=== PATIENT | female | born 1990 | race Caucasian/White ===

== ENCOUNTER 2016-09-22 07:27 | Emergency (ER) | payer SELFPAY ==
[2016-09-22 07:29] VITALS: BP 126/84; PULSE 112; RESP 20; TEMP 98; O2SAT 96
--- NOTE | 2016-09-22 07:47 | PD ---
HPI Chief Complaint: Oral / Dental Pain or Problem Time Seen by Provider: 07:46 Travel History International Travel<30 days: No Contact w/Intl Traveler<30days: No Traveled to known affect area: No History of Present Illness HPI 26-year-old female presents emergency Department with "cold sores" to her lips and buccal membranes which gotten progressively worse over the past 3 days. Patient has been trying omek-pfk-clrnzer medications without improvement. Patient does have some mild to moderate sore throat as well significant swelling in the throat. She is felt chills but no specific fever. She has no ear pain or cough or nausea vomiting or diarrhea. She has never had symptoms like this before. She has no known drug allergies. PFSH Past Medical History Autoimmune Disease: Yes (lupus of kidneys) ?: Not Social History Alcohol Use: No Tobacco Use: No Allergies-Medications (Allergen,Severity, Reaction): Coded Allergies: No Known Allergies (Unverified , 09/22/16) Reported Meds & Prescriptions Reported Meds & Active Scripts Active No Active Prescriptions or Reported Medications Review of Systems Except as stated in HPI: all other systems reviewed are Neg General / Constitutional: Positive: Chills, No: Fever Eyes: No: Visual changes HENT: Positive: Sore Throat, No: Headaches, Rhinitis, Rhinorrhea, Congestion, Neck Stiffness, Neck Pain, Ear Discharge, Earache Cardiovascular: No: Chest Pain or Discomfort Respiratory: No: Shortness of Breath Gastrointestinal: No: Abdominal Pain Genitourinary: No: Dysuria Musculoskeletal: No: Pain Skin: Positive Lesions (see history present illness.), No Rash Neurologic: No: Weakness Psychiatric: No: Depression Endocrine: No: Polydipsia Hematologic/Lymphatic: No: Easy Bruising Physical Exam Narrative GENERAL: Patient appears in mild to moderate distress. SKIN: Warm and dry. Normal color. Normal turgor. Patient has multiple viral exanthem to the upper and lower lips with localized swelling and erythema. There is no sign of bacterial infection. HEAD: Atraumatic. Normocephalic. EYES: Pupils equal and round. No scleral icterus. No injection or drainage. ENT: No nasal bleeding or discharge. Mucous membranes pink and moist with multiple viral exanthem noted. Pharynx shows several ulcerations without significant swelling or airway compromise. No significant lymphadenopathy. Uvula is midline. NECK: Trachea midline. No JVD. CARDIOVASCULAR: Regular rate and rhythm. RESPIRATORY: No accessory muscle use. Clear to auscultation. Breath sounds equal bilaterally. MUSCULOSKELETAL: Extremities without clubbing, cyanosis, or edema. No obvious deformities. NEUROLOGICAL: Awake and alert. No obvious cranial nerve deficits. Motor grossly within normal limits. Five out of 5 muscle strength in the arms and legs. Normal speech. PSYCHIATRIC: Appropriate mood and affect; insight and judgment normal. Data Data Last Documented VS Vital Signs Date Time Temp Pulse Resp B/P Pulse Ox O2 Delivery O2 Flow Rate FiO2 09/22/16 07:29 98.0 112 20 126/84 96 Room Air MDM Medical Decision Making Medical Screen Exam Complete: Yes Emergency Medical Condition: Yes Differential Diagnosis Vital rash. Herpes simplex. Pharyngitis. Narrative Course Patient is medically stable at time of exam. Patient is treated with acyclovir oral capsules 200 mg, 4 capsules 5 times daily 7 days. Patient is also given a prescription for acyclovir topical ointment to be used 5 times daily for 7 days. Patient can use [id number] Tylenol and ibuprofen as needed for pain. Patient should avoid sun exposure until completely cleared. Patient should follow with her primary care physician or return to emergency Department with worsening symptoms as needed. Diagnosis Primary Impression: Herpes simplex Referrals: [facility] Patient Instructions: General Instructions, Oral Herpes Simplex Virus Infections (ED) Additional Instructions: Patient is treated with acyclovir oral capsules 200 mg, 4 capsules 5 times daily 7 days. Patient is also given a prescription for acyclovir topical ointment to be used 5 times daily for 7 days. Patient can use ymzo-dvh-aetrrsq Tylenol and ibuprofen as needed for pain. Patient should avoid sun exposure until completely cleared. Patient should follow with her primary care physician or return to emergency Department with worsening symptoms as needed. Scripts Acyclovir Topical 5% Oint1 Applic TOPICAL Q3HR #5 GM Ref 0 Prov:Christiana Roberts DO 09/22/16 Acyclovir 200 Mg Ott701 Mg PO 5 TIMES A DAY 7 Days Ref 0 Prov:Christiana Roberts DO 09/22/16 Disposition: 01 DISCHARGE HOME Condition: Stable Carlos Spain Sep 22, 2016 07:46
[2016-09-22] MEDS ORDERED: ACYC200C66 PO (07:57)
[2016-09-22] MEDS ORDERED: ACYC5OIN4 TOPICAL (07:57)
== END 2016-09-22 09:03 | disposition home or self-care (01) ==
LOC: NEPB 07:27
DX: B00.9 Herpesviral infection, unspecified (principal); J02.9 Acute pharyngitis, unspecified; M32.9 Systemic lupus erythematosus, unspecified
CPT/HCPCS: 99282

== ENCOUNTER 2016-10-16 15:09 | Emergency (ER) | payer SELFPAY ==
[~2016-10-16 15:09] MED LIST: ACYC200C66 PO; ACYC5OIN4 TOPICAL
[2016-10-16 15:11] VITALS: BP 133/85; PULSE 98; TEMP 98.1; O2SAT 96
[2016-10-16 17:02] LABS: BACTERIA, URINE RARE /hpf; BLOOD, URINE NEG (NEG); COMMENT (UR) CULT NOT INDICATED; CULTURE IF INDICATED CULT NOT INDICATED; GLUCOSE,URINE NEG (NEG); KETONE, URINE NEG (NEG); NITRITE,URINE NEG (NEG); SQUAMOUS EPITHELIAL CELL URINE 1 /hpf (0-5); URINE COLOR LIGHT-YELLOW (YELLW/STRAW)
[2016-10-16] MEDS ORDERED: MORPHINE SULFATE 4 MG/ML INJ IV PUSH ONE ×2 (18:30→21:00)
[2016-10-16] MEDS ORDERED: ONDANSETRON HCL 4 MG/2 ML VIAL IV PUSH ONE ×2 (18:30→21:00)
[2016-10-16 19:26] LABS: AUTOMATED NEUTROPHIL # 5.3 TH/MM3 (1.8-7.7); BASOPHIL # 0.1 TH/MM3 (0-0.2); BASOPHIL % 0.9 % (0.0-2.0); EOSINOPHIL # 0.1 TH/MM3 (0-0.4); EOSINOPHIL % 0.7 % (0.0-4.0); HEMATOCRIT 41.6 % (35.0-46.0); HEMO FLAGS DIFF FINAL; LYMPHOCYTE # 3.4 TH/MM3 (1.0-4.8); MEAN CELL VOLUME 84.4 FL (80.0-100.0); MEAN CORPUSCULAR HEMOGLOBIN 28.9 PG (27.0-34.0); MEAN CORPUSCULAR HGB CONC 34.3 % (32.0-36.0); MONO % 6.7 % (0.0-8.0); NEUT % 55.7 % (16.0-70.0); PLATELET COUNT 319 TH/MM3 (150-450); RED BLOOD COUNT 4.92 MIL/MM3 (4.00-5.30); RED CELL DISTRIBUTION WIDTH 13.7 % (11.6-17.2); WHITE BLOOD COUNT 9.6 TH/MM3 (4.0-11.0)
--- NOTE | 2016-10-16 19:35 | RADRPT ---
EXAM DATE/TIME: 10/16/2016 19:16 [place] COMPARISON: No previous studies available for comparison. INDICATIONS : Right flank pain with vomiting and hematuria. ORAL CONTRAST: No oral contrast ingested. RADIATION DOSE: 8.19 CTDIvol (mGy) MEDICAL HISTORY : Lupus of the kidneys. SURGICAL HISTORY : None. ENCOUNTER: Initial ACUITY: 1 day PAIN SCALE: 8/10 LOCATION: Right flank TECHNIQUE: Volumetric scanning of the abdomen and pelvis was performed. Using automated exposure control and ad justment of the mA and/or kV according to patient size, radiation dose was kept as low as reasonably achievable to obtain optimal diagnostic quality images. FINDINGS: LOWER LUNGS: The visualized lower lungs are clear. LIVER: Homogeneous density without lesion. There is no dilation of the biliary tree. No calcified gallston es. SPLEEN: Normal size without lesion. PANCREAS: Within normal limits. KIDNEYS: Normal in size and shape. There is no mass, stone, or hydronephrosis. ADRENAL GLANDS: Within normal limits. VASCULAR: There is no aortic aneurysm. BOWEL/MESENTERY: The stomach, small bowel, and colon demonstrate no acute abnormality. There is no free intraperitone al air or fluid. ABDOMINAL WALL: Within normal limits. RETROPERITONEUM: There is no lymphadenopathy. BLADDER: No wall thickening or mass. REPRODUCTIVE: Within normal limits. INGUINAL: There is no lymphadenopathy or hernia. MUSCULOSKELETAL: Within normal limits for patient age. CONCLUSION: 1. No acute findings. Specifically no renal calculi or obstructive uropathy. Incidental calcified gra nulomata in the spleen. No bowel obstruction, free fluid or free air. Chucho Casanova MD on October 16, 2016 at 19:27 Board Certified Radiologist. This report was verified electronically.
[2016-10-16 19:51] LABS: BICARBONATE 24.1 MEQ/L (21.0-32.0); POTASSIUM 3.7 MEQ/L (3.5-5.1)
[2016-10-16] MEDS ORDERED: PRED20 PO (20:18)
[2016-10-16] MEDS ORDERED: HYDR-3533 PO (20:18)
--- NOTE | 2016-10-16 20:24 | PD ---
HPI Chief Complaint: Complaint Time Seen by Provider: 20:18 Travel History International Travel<30 days: No Contact w/Intl Traveler<30days: No Traveled to known affect area: No History of Present Illness HPI 26-year-old female that presents to the ED for evaluation of flank pain as well as possible lupus flareup. Per patient she has a history of lupus affecting the kidneys. Per patient she's been in [place] for about a year and she has not had any follow-up since. Per patient she is to be medications for her lupus before coming to [place] and her adjunct phlebotomy instructor believes that her symptoms were improving and her lupus was under control. Apparently these medications were discontinued. Per patient for the most part she's been having no issues. Per patient she's had episodes before like this one. Per patient she has left flank pain. Per patient she had blood in her urine and she had some nausea with vomiting. She denies any chest pain or shortness of breath. No rashes. No fevers chills or sweats. She states that she did have episode of vomiting today. She has no known allergies to medication. She has not taken anything for this. Per patient her pain is 6 out of 10. Per patient her main concern is that her work made her come here to get checked before she can go back to work. She asked for a note so she can go back to work. PFSH Past Medical History Autoimmune Disease: Yes (lupus of kidneys) Tetanus Vaccination: Unknown Influenza Vaccination: No ?: Not Social History Alcohol Use: No Tobacco Use: No Substance Use: No Allergies-Medications (Allergen,Severity, Reaction): Coded Allergies: No Known Allergies (Unverified , 09/22/16) Reported Meds & Prescriptions Reported Meds & Active Scripts Active Tramadol (Tramadol HCl) 50 Mg Tab 50 Mg PO Q6H PRN Prednisone 20 Mg Tab 20 Mg PO BID Review of Systems General / Constitutional: No: Fever, Chills, Weight Gain, Weight Loss, Other Eyes: No: Diploplia, Blurred Vision, Photophobia, Drainage, Redness, Foreign Body Sensation, Pain, Tearing, Blind Spots, Visual changes, Blindness, Other HENT: No: Headaches, Vertigo, Lightheadedness, Sore Throat, Rhinitis, Rhinorrhea, Congestion, Nosebleed, Neck Stiffness, Neck Pain, Masses, Gingival Bleeding, Dental Difficulties, Ear Discharge, Earache, Other Cardiovascular: No: Chest Pain or Discomfort, Palpitations, Irregular Rhythm, Tachycardia, Diaphoresis, Syncope, Dyspnea on exertion, Varicosities, Edema, Cyanosis, Varicosities, Phlebitis, Claudication, Other Respiratory: No: Cough, Shortness of Breath, Wheezing, Sneezing, Orthopnea, Hemoptysis, Stridor, Night Sweats, Pleuritic Pain, Other Gastrointestinal: Positive: Nausea, Vomiting, Abdominal Pain, No: Diarrhea, Hematemesis, Hematochezia, Constipation, Changes in Bowel Habits, Indigestion, Dysphagia, Loss of Appetite, Other Genitourinary: Positive: Hematuria, Flank Pain, No: Urgency, Frequency, Dysuria, Nocturia, Decreased Urinary Output, Oliguria, Hesitancy, Dribbling, Incontinence, Pelvic Pain, Dyspareunia, Discharge, Dysmenorrhea, Menorrhagia, Metorrhagia, Vaginal Bleeding, Other Musculoskeletal: No: Myalgias, Arthralgias, Limited ROM, Weakness, Cramping, Edema, Pain, Atrophy, Other Skin: No Rash, No Itching, No Dryness, No Lumps, No Hives, No Change in Pigmentation, No Change in nails, No Alopecia, No Lesions, No Breast Lumps, No Breast Tenderness, No Breast Swelling, No Other Neurologic: No: Weakness, Dizziness, Syncope, Focal Abnormalities, Coordination Problem, Tremor, Ataxia, Headache, Change in Mentation, Slurred Speech, Paresthesia, Incontinence, Seizures, Sensory Disturbance, Other Psychiatric: No: Anxiety, Depression, Suicidal Ideations, Disorder of Thought, Mood Disorder, Substance Abuse, Homicidal Ideation, Other Endocrine: No: Heat Intolerance, Cold Intolerance, Polyuria, Polydipsia, Other Hematologic/Lymphatic: No: Easy Bruising, Lymph Node Enlargement, Other Physical Exam Narrative GENERAL: SKIN: Warm and dry. HEAD: Atraumatic. Normocephalic. EYES: Pupils equal and round. No scleral icterus. No injection or drainage. ENT: No nasal bleeding or discharge. Mucous membranes pink and moist. Tongue is midline. No uvula deviation. NECK: Trachea midline. No JVD. CARDIOVASCULAR: Regular rate and rhythm. No murmurs, S3, S4. RESPIRATORY: No accessory muscle use. Clear to auscultation. Breath sounds equal bilaterally. GASTROINTESTINAL: Abdomen soft, non-tender, nondistended. Hepatic and splenic margins not palpable. MUSCULOSKELETAL: Extremities without clubbing, cyanosis, or edema. No obvious deformities. Patient has full range of motion of the upper and lower extremities bilaterally. No CVA tenderness noted. NEUROLOGICAL: Awake and alert. No obvious cranial nerve deficits. Motor grossly within normal limits. Five out of 5 muscle strength in the arms and legs. Normal speech. PSYCHIATRIC: Appropriate mood and affect; insight and judgment normal. Data Data Last Documented VS Vital Signs Date Time Temp Pulse Resp B/P Pulse Ox O2 Delivery O2 Flow Rate FiO2 10/16/16 15:11 98.1 98 133/85 96 Orders Urinalysis - C+S If Indicated (10/16/16 16:07) Ed Urine Pregnancytest Poc (10/16/16 16:07) Complete Blood Count With Diff (10/16/16 18:24) Basic Metabolic Panel (Bmp) (10/16/16 18:24) Magnesium (Mg) (10/16/16 18:24) Iv Access Insert/Monitor (10/16/16 18:24) Ct Abd/Pel W/O Iv Contrast (10/16/16 ) Morphine Inj (Morphine Inj) (10/16/16 18:30) Ondansetron Inj (Zofran Inj) (10/16/16 18:30) Westergren Sedimentation Rate (10/16/16 18:31) Labs Laboratory Tests Test 10/16/16 10/16/16 16:20 18:49 Urine Color LIGHT-YELLOW Urine Turbidity CLEAR Urine pH 7.0 Urine Specific [place] 1.007 Urine Protein 300 mg/dL Urine Glucose (UA) NEG mg/dL Urine Ketones NEG mg/dL Urine Occult Blood NEG Urine Nitrite NEG Urine Bilirubin NEG Urine Urobilinogen LESS THAN 2.0 MG/DL Urine Leukocyte Esterase NEG Urine RBC 3 /hpf Urine WBC 6 /hpf Urine Squamous Epithelial 1 /hpf Cells Urine Bacteria RARE /hpf Microscopic Urinalysis Comment CULT NOT INDICATED White Blood Count 9.6 TH/MM3 Red Blood Count 4.92 MIL/MM3 Hemoglobin 14.3 GM/DL Hematocrit 41.6 % Mean Corpuscular Volume 84.4 FL Mean Corpuscular Hemoglobin 28.9 PG Mean Corpuscular Hemoglobin 34.3 % Concent Red Cell Distribution Width 13.7 % Platelet Count 319 TH/MM3 Mean Platelet Volume 7.4 FL Neutrophils (%) (Auto) 55.7 % Lymphocytes (%) (Auto) 36.0 % Monocytes (%) (Auto) 6.7 % Eosinophils (%) (Auto) 0.7 % Basophils (%) (Auto) 0.9 % Neutrophils # (Auto) 5.3 TH/MM3 Lymphocytes # (Auto) 3.4 TH/MM3 Monocytes # (Auto) 0.6 TH/MM3 Eosinophils # (Auto) 0.1 TH/MM3 Basophils # (Auto) 0.1 TH/MM3 CBC Comment DIFF FINAL Differential Comment Erythrocyte Sedimentation Rate 6 mm/hr Sodium Level 139 MEQ/L Potassium Level 3.7 MEQ/L Chloride Level 108 MEQ/L Carbon Dioxide Level 24.1 MEQ/L Anion Gap 7 MEQ/L Blood Urea Nitrogen 7 MG/DL Creatinine 0.69 MG/DL Estimat Glomerular Filtration 102 ML/MIN Rate Random Glucose 88 MG/DL Calcium Level 8.3 MG/DL Magnesium Level 2.0 MG/DL MDM Medical Decision Making Medical Screen Exam Complete: Yes Emergency Medical Condition: Yes Medical Record Reviewed: Yes Interpretation(s) CBC & BMP Diagram 10/16/16 18:49 UA negative Last Impressions Abdomen/Pelvis CT 10/16/16 0000 Signed Impressions: Service Date/Time: Sunday, October 16, 2016 19:16 - CONCLUSION: 1. No acute findings. Specifically no renal calculi or obstructive uropathy. Incidental calcified granulomata in the spleen. No bowel obstruction, free fluid or free air. Chucho Casanova MD Differential Diagnosis Flank pain versus kidney stone versus UTI versus lupus versus acute on chronic pain versus chronic pain versus nephrolithiasis Narrative Course 26-year-old female that presents to the ED for evaluation of flank pain. Patient was properly examined and was found to have signs and symptoms consistent with flank pain. Possible urinary etiology. Patient states that she has a history of lupus affecting her kidneys. She believes that this is an exacerbation of that. States that she has hematuria as well as vomiting. She also voices concern that she needs a note so she can go back to work. Labs and urine were done. Patient's labs were essentially unremarkable. ESR of 6. CT of the abdomen and pelvis was done to make sure there is no sign of kidney stone. CT was negative for this. At this time I do not see any obvious etiology for this. I do recommend that the patient needs to follow up closely with adjunct phlebotomy instructor her PCP for further evaluation of her chronic lupus. She was told to drink plenty of fluids. See ED worsening symptoms. Given note for work. Patient was given a prescription for prednisone to cover for possible lupus, and tramadol for pain. Patient was told that she needs to follow closely. She agrees and understands plan. Diagnosis Primary Impression: Flank pain Patient Instructions: General Instructions, Narcotic given in the ED Departure Forms: Tests/Procedures, Work Release Enter return to work date: Oct 18, 2016 Additional Instructions: Take medications as prescribed. Follow-up with your doctor. See ED for worsening symptoms. Med/Other Pt SpecificInfo: Prescription(s) given Scripts Tramadol 50 Mg Tab50 Mg PO Q6H PRN (PAIN) #12 TAB Ref 0 Prov:Marycarmen Weston MD 10/16/16 Prednisone 20 Mg Tab20 Mg PO BID #10 TAB Prov:Mitchell Szymanski MD 10/16/16 Disposition: 01 DISCHARGE HOME Condition: Stable Chung Guerrero Oct 16, 2016 20:24
[2016-10-16] MEDS ORDERED: TRAM50TA PO (20:25)
== END 2016-10-16 21:57 | disposition home or self-care (01) ==
LOC: NEPE 15:09
DX: R10.9 Unspecified abdominal pain (principal); R11.2 Nausea with vomiting, unspecified; R31.9 Hematuria, unspecified; M32.14 Glomerular disease in systemic lupus erythematosus
CPT/HCPCS: 74176; 80048; 81001; 83735; 84703; 85025; 85652; 96374; 96375; 96376; 99284; J2270; J2405

== ENCOUNTER 2016-12-06 17:32 | Emergency (ER) | payer SELFPAY ==
[~2016-12-06] VITALS: Ht 175.3 cm; Wt 85.0 kg
[~2016-12-06 17:32] MED LIST changes: -ACYC200C66 PO; -ACYC5OIN4 TOPICAL; +PRED20 PO; +TRAM50TA PO
[2016-12-06 17:34] VITALS: BP 148/68; PULSE 85; RESP 16; TEMP 98; O2SAT 98
--- NOTE | 2016-12-06 17:44 | PD ---
Physical Exam Time Seen by Provider: 17:43 Narrative 26 y/o female w/ hx of migraines presents with headache, nausea for 4 days. Vital signs reviewed. Seen at triage desk. Awaiting bed placement. Data Data Last Documented VS Vital Signs Date Time Temp Pulse Resp B/P Pulse Ox O2 Delivery O2 Flow Rate FiO2 12/06/16 17:34 98.0 85 16 148/68 98 Room Air [facility] Medical Record Reviewed: Yes Supervised Visit with ANTHONY: Bradley Rojas December 06, 2016 17:44
--- NOTE | 2016-12-06 21:08 | PD ---
HPI . Headache Chief Complaint: Headache Time Seen by Provider: 21:04 Travel History International Travel<30 days: No Contact w/Intl Traveler<30days: No Traveled to known affect area: No History of Present Illness HPI Patient presents with a 4 to five-day history of headache. She states it is a sharp pain that starts in the of the scalp and radiates around the bilateral forehead and behind her eyes. It is associated with nausea and vomiting. It is exacerbated by light and noise. She reports very temporary relief with Imitrex. PFSH Past Medical History Autoimmune Disease: Yes (lupus of kidneys) ?: Not Social History Alcohol Use: No Tobacco Use: No Substance Use: No Allergies-Medications (Allergen,Severity, Reaction): Coded Allergies: No Known Allergies (Unverified , 12/06/16) Reported Meds & Prescriptions Reported Meds & Active Scripts Active No Active Prescriptions or Reported Medications Review of Systems Except as stated in HPI: all other systems reviewed are Neg Eyes: Positive: Photophobia HENT: Positive: Headaches Gastrointestinal: Positive: Nausea, Vomiting Physical Exam Narrative GENERAL: Awake and alert and in no acute distress. SKIN: Warm and dry. HEAD: Atraumatic. Normocephalic. Positive scalp tenderness. EYES: Pupils equal and round. Extraocular movements are intact. NECK: Trachea midline. Neck is tender but supple. CARDIOVASCULAR: Regular rate and rhythm. RESPIRATORY: No accessory muscle use. MUSCULOSKELETAL: No obvious deformities. No edema. NEUROLOGICAL: Awake and alert. No obvious cranial nerve deficits. Motor grossly within normal limits. Normal speech. PSYCHIATRIC: Appropriate mood and affect; insight and judgment normal. Data Data Last Documented VS Vital Signs Date Time Temp Pulse Resp B/P Pulse Ox O2 Delivery O2 Flow Rate FiO2 12/06/16 17:34 98.0 85 16 148/68 98 Room Air Orders Iv Access Insert/Monitor (12/06/16 21:04) Sodium Chloride 0.9% Flush (Ns Flush) (12/06/16 21:15) Prochlorperazine Inj (Compazine Inj) (12/06/16 21:15) Diphenhydramine Inj (Benadryl Inj) (12/06/16 21:15) MDM Medical Decision Making Medical Screen Exam Complete: Yes Emergency Medical Condition: Yes Differential Diagnosis Differential diagnosis of headache includes but is not limited to migraine, muscle contraction headache, brain tumor, brain bleed Narrative Course Patient presents for treatment of an acute headache. She does not have any worrisome physical exam findings. Patient reports that her headache is improving. Diagnosis Primary Impression: Headache Qualified Code: G44.209 - Acute non intractable tension-type headache Patient Instructions: Acute Headache (DC), General Instructions Scripts Utqcwwvbut-Lmdjlbnbryzdk-Tixmvjtp (Fioricet)50-300-40 Mg Cap1 Cap PO Q4H PRN ( HEADACHE) #12 CAP Ref 0 Prov:Mary Sanchez MD 12/06/16 Disposition: 01 DISCHARGE HOME Condition: Stable Mary Sanchez MD December 06, 2016 21:08
[2016-12-06] MEDS ORDERED: SODIUM CHLORIDE 0.9% FLUSH 10 ML FLUSH IVF PRN (21:15)
[2016-12-06] MEDS ORDERED: PROCHLORPERAZINE INJ 10 MG/2 ML VIAL IVP ONE (21:15)
[2016-12-06] MEDS ORDERED: diphenhydrAMINE HCL 50 MG/ML VIAL IVP ONE (21:15)
[2016-12-06] MEDS ORDERED: BUTA1CAP PO (21:43)
[2016-12-06 22:00] VITALS: BP 139/88; PULSE 67; RESP 18; O2SAT 96
== END 2016-12-06 22:04 | disposition home or self-care (01) ==
LOC: NEPD 17:32
DX: G44.209 Tension-type headache, unspecified, not intractable (principal)
CPT/HCPCS: 96374; 99283; J0780; J1200